=== PATIENT | female | born 1955 | race Caucasian/White ===

== ENCOUNTER → 2024-04-19 | Day surgery (SDC) | payer BC ==
[2024-04-11 11:03] LABS: BASOPHILS # (AUTO) 0.1 (0.0-0.1); BASOPHILS % 1.2 % (0.0-1.0); EOSINOPHILS # (AUTO) 0.2 (0.0-0.4); EOSINOPHILS % 3.3 % (0.0-6.0); HEMOGLOBIN 13.5 g/dL (12.0-16.0); LYMPHOCYTES # (AUTO) 2.2 (1.0-3.2); LYMPHOCYTES % 42.1 % (18.0-39.1); MEAN CORPUSCULAR HEMOGLOBIN 31.7 pg (28-32); MEAN CORPUSCULAR HGB CONC 33.8 g/dL (31-35); MEAN CORPUSCULAR VOLUME 93.9 fL (81-99); MONOCYTES # (AUTO) 0.4 (0.2-0.8); MONOCYTES % 8.5 % (4.4-11.3); NEUTROPHILS # (AUTO) 2.3 (2.1-6.9); NEUTROPHILS % 44.9 % (38.7-80.0); PLATELET COUNT 302 x10e3/uL (140-360); RED BLOOD COUNT 4.26 x10e6/uL (3.6-5.1); RED CELL DISTRIBUTION WIDTH 13.4 % (11.7-14.4)
[~2024-04-19] MED LIST: ACETAMINOPHEN 1000 MG/100 ML 100 ML IV ONE; ACETAMINOPHEN-1 EAC4 PO; DEXAMETHASONE SOD PHOS INJ 4 MG/ML SDV ONE; FENTANYL CITRATE/PF 100MCG/2 ML INJ ONE; GLUCOSAMINE &1 EACH PO; LEVOTHYROXINE112 MCG PO; MULTIVITAMINS1 EAC6 PO; ONDANSETRON HCL INJ 2MG/ML 2ML 2 MG/ML VIAL ONE; OYSTER SHELL C1 EA12 PO; PROPOFOL IV EMULSION 10 MG/ML 20 ML VIAL ONE; SEVOFLURANE INHAL SOLN 250 ML PEN BTL ONE; SODIUM CHLORIDE 0.9% 100 ML ONE; VENLAFAXINE HCL75 M2 PO; [UNRECOGNIZED DRUG - OTHER] PO
[2024-04-19 07:36] VITALS: TEMP 96.9
[2024-04-19] MEDS: FENTANYL CITRATE/PF 100MCG/2 ML INJ ONE (07:40)
[2024-04-19 08:50] VITALS: BP 121/88; PULSE 71; RESP 18; O2SAT 96
[2024-04-19] MEDS: LACTATED RINGER'S 1,000 ML ONE (09:11)
== END | disposition home or self-care (01) ==
LOC: OR 05:32
PROVIDERS: ATTEND Plastic Surgery
DX: M67.432 Ganglion, left wrist (principal); Z91.048 Other nonmedicinal substance allergy status; Z01.810 Encounter for preprocedural cardiovascular examination; Z01.812 Encounter for preprocedural laboratory examination; Z01.818 Encounter for other preprocedural examination; Z79.899 Other long term (current) drug therapy
CPT/HCPCS: 25111; 36415; 71046; 85025; 88304; 93005; J0131; J0690; J1100; J2405; J2704; J3010; J7050; J7121